=== PATIENT | male | born 1940 | race Caucasian/White ===

== ENCOUNTER 2016-09-15 00:02 | Inpatient (IN) | payer MEDICARE ==
[~2016-09-15] VITALS: Ht 172.7 cm; Wt 61.0 kg
[2016-09-15] VITALS (10 sets, daily range): BP systolic 130–184; BP diastolic 60–98
[~2016-09-15 00:02] MED LIST: ATIVAN0.5 MG PO
[2016-09-15 00:20] LABS: BASO # 0.1 10*3/uL (0.0-0.1); BASO % 0.7 % (0.0-1.0); EOS # 0.5 10*3/uL (0.0-0.4); EOS % 4.8 % (1.0-4.0); HEMATOCRIT 42.3 % (42.0-52.0); HEMOGLOBIN 14.4 g/dl (14.0-18.0); LYMPH # 2.6 10*3/uL (1.3-4.4); LYMPH % 27.3 % (27.0-41.0); MEAN CORPUSCULAR HGB 30.6 pg (27.0-31.0); MEAN PLATELET VOLUME 10.4 fl (9.6-12.3); MONO # 0.7 10*3/uL (0.1-1.0); MONO % 7.5 % (3.0-9.0); NEUT # 5.6 10*3/uL (2.3-7.9); NEUT % 59.5 % (47.0-73.0); PLATELET COUNT AUTOMATED 262 10*3/uL (130-400); RED CELL DISTRI WIDTH 12.4 % (0-14.5); WHITE BLOOD COUNT 9.5 10*3/uL (4.8-10.8)
[2016-09-15 00:30] LABS: INTERNATIONAL NORM RATIO 1.3 (2.0-3.5); PROTHROMBIN TIME 14.1 SECONDS (9.0-12.4)
[2016-09-15 00:36] LABS: ALBUMIN 3.7 gm/dl (3.1-4.5); ALKALINE PHOSPHATASE 68 U/L (45-117); BILIRUBIN, TOTAL 0.4 mg/dl (0.2-1.0); BUN 11 mg/dl (7-24); CARBON DIOXIDE 28 mmol/L (21-32); CHLORIDE 105 mmol/L (98-107); EST GLOM FILT AFRICAN AMERICAN > 60 ml/min; GLUCOSE 234 mg/dL (65-99); MAGNESIUM 2.4 mg/dL (1.5-2.1); POTASSIUM 4.1 mmol/L (3.5-5.1); SGOT/AST 14 IU/L (3-35); SGPT/ALT 19 U/L (12-78); SODIUM 140 mmol/L (136-145); TOTAL PROTEIN 7.7 gm/dL (6.4-8.2)
[2016-09-15 00:37] LABS: TROPONIN I 0.017 ng/ml (<0.045)
[2016-09-15] MEDS ORDERED: JANTOVEN5 MG PO (01:08)
[2016-09-15] MEDS ORDERED: DIGOXIN0.125 MG PO (01:08)
[2016-09-15] MEDS ORDERED: CARVEDILOL3.125 MG PO (01:09)
[2016-09-15] MEDS ORDERED: PRINIVIL10 MG PO (01:09)
[2016-09-15] MEDS ORDERED: LOVASTATIN40 MG PO (01:09)
[2016-09-15] MEDS ORDERED: METFORMIN750 MG PO (01:10)
[2016-09-15] MEDS ORDERED: GLIPIZIDE10 M1 PO (01:11)
[2016-09-15] MEDS ORDERED: MULTI VITAMINS1 TAB PO (04:16)
[2016-09-15 06:22] LABS: BASO # 0.1 10*3/uL (0.0-0.1); BASO % 0.7 % (0.0-1.0); EOS # 0.4 10*3/uL (0.0-0.4); EOS % 4.8 % (1.0-4.0); HEMATOCRIT 38.3 % (42.0-52.0); HEMOGLOBIN 12.7 g/dl (14.0-18.0); LYMPH # 1.9 10*3/uL (1.3-4.4); LYMPH % 25.3 % (27.0-41.0); MEAN CELL VOLUME 90.3 fl (80.0-94.0); MEAN CORPUSCULAR HGB CONC 33.2 g/dl (33.0-37.0); MEAN PLATELET VOLUME 10.5 fl (9.6-12.3); MONO # 0.6 10*3/uL (0.1-1.0); MONO % 7.6 % (3.0-9.0); NEUT # 4.6 10*3/uL (2.3-7.9); NEUT % 61.5 % (47.0-73.0); PLATELET COUNT AUTOMATED 233 10*3/uL (130-400); RED BLOOD COUNT 4.24 10*6/uL (4.50-5.90); RED CELL DISTRI WIDTH 12.4 % (0-14.5); WHITE BLOOD COUNT 7.5 10*3/uL (4.8-10.8)
[2016-09-15 06:33] LABS: HEMOGLOBIN A1c 9.1 % (4.8-5.6)
[2016-09-15 06:56] LABS: BUN 10 mg/dl (7-24); CARBON DIOXIDE 28 mmol/L (21-32); CHLORIDE 106 mmol/L (98-107); CHOLESTEROL 125 mg/dL (<200); EST GLOM FILT AFRICAN AMERICAN > 60 ml/min; GLUCOSE 185 mg/dL (65-99); MAGNESIUM 2.3 mg/dL (1.5-2.1); PHOSPHOROUS 2.8 mg/dL (2.5-4.9); POTASSIUM 4.3 mmol/L (3.5-5.1); SODIUM 140 mmol/L (136-145); TRIGLYCERIDES 193 mg/dl (<150); VLDL CHOLESTEROL 39 mg/dL (6-40)
[2016-09-15 06:57] LABS: INTERNATIONAL NORM RATIO 1.4 (2.0-3.5)
[2016-09-15 07:03] LABS: VITAMIN D, 25-HYDROXY 26.7 ng/mL (30-100)
[2016-09-15 07:04] LABS: FOLIC ACID 17.8 ng/mL (>5.38); FREE T4 0.83 ng/dl (0.76-1.46); HDL CHOLESTEROL 34 mg/dl (40-60); LDL CHOLESTEROL 52 mg/dL (9-159)
[2016-09-15] MEDS ORDERED: VITAMIN D-32000 UNI1 PO (12:02)
[2016-09-15] MEDS ORDERED: MECLIZINE HCL25 M2 PO (12:02)
[2016-09-15] MEDS ORDERED: METFORMIN1000 MG PO (12:02)
[2016-09-15] MEDS ORDERED: LISINOPRIL20 MG PO (12:02)
== END 2016-09-15 11:55 | disposition home or self-care (01) | DRG 305 ==
LOC: ED 00:02 → 5E 02:20 → EDHOLD 02:20 → 5E 02:39
PROVIDERS: Emergency Medicine Emergency Medical Services; Internal Medicine
DX: I16.1 Hypertensive emergency (principal); E11.51 Type 2 diabetes mellitus with diabetic peripheral angiopathy without gangrene; E11.65 Type 2 diabetes mellitus with hyperglycemia; H81.12 Benign paroxysmal vertigo, left ear; E78.00 Pure hypercholesterolemia, unspecified; E83.41 Hypermagnesemia; F17.210 Nicotine dependence, cigarettes, uncomplicated; Z86.73 Personal history of transient ischemic attack (TIA), and cerebral infarction without residual deficits; Z71.6 Tobacco abuse counseling; I25.2 Old myocardial infarction; Z80.0 Family history of malignant neoplasm of digestive organs; Z82.49 Family history of ischemic heart disease and other diseases of the circulatory system

== ENCOUNTER 2017-08-25 19:04 | Inpatient (IN) | payer MEDICARE ==
[~2017-08-25] VITALS: Ht 177.8 cm; Wt 47.7 kg
--- NOTE | ~2017-08-25 | CON ---
[place], [place] REPORT OF CONSULTATION NAME: VIRGILIO TRIPP [facility] #: [id number] UNIT #: [id number] ROOM: 425 DOCTOR: SEKOU HATCHHARISH J BIRTHDATE: [birth year] DOS: 08/26/2017 SUBJECTIVE: The patient is a 76-year-old male with chief complaint of gangrenous changes to the left foot, left leg and infected ulcer to the outside of the left ankle. The patient has seen Dr. House at [facility] for vascular surgery and was at the wound care center with Dr. Mikey DPM recently. The patient was admitted from the emergency room yesterday. PAST MEDICAL HISTORY: Atrial fibrillation, benign positional vertigo, chronic CHF, essential hypertension, history of CVA, history of [place], hypercholesterolemia, hypercoagulable state, mixed hyperlipidemia, PVD, tobacco abuse disorder, type 2 diabetes, vitamin D deficiency. PAST SURGICAL HISTORY: History of vascular procedure. SOCIAL HISTORY: Smoking 5 cigarettes daily and has smoked since age 7. Social alcohol use. Denies illicit drug use. FAMILY HISTORY: Father at age 64 of colon cancer. Mother in the 80s of [place]. ALLERGIES: No known allergies. PHYSICAL EXAMINATION: LOWER EXTREMITY EXAMINATION: Pedal pulses nonpalpable. There is decreased hair growth. There is an ulceration to the lateral malleolus, left ankle with purulent drainage, localized erythema and foul odor consistent with infection. The patient has a gangrene noted to the left forefoot encompassing toes 3, 4 and 5 extending to the mid foot dorsolaterally and plantarly. There are also gangrenous changes to the anterior left wall noted. ASSESSMENT: Gangrene, severe peripheral vascular disease, infection of the left ankle with possible underlying osteomyelitis, diabetes. PLAN: Evaluation and management discussed with the patient and his family that this is a limb loss situation that he needs a vascular intervention or a [id number] amputation. The family was in concurrence with this. My recommendation was to transfer the patient back to Dr. House at [facility]. I spoke with Dr. House via telephone regarding the patient's case and he will arrange transfer of the patient to [facility] with either vascular intervention or amputation. I also discussed the case with internal medicine to notify them of the patient's condition, my recommendations and the patient being transferred under Dr. House's care. Ordered Bactroban and gauze dressing to the lateral left ankle and dry gauze dressing to the remaining areas before the patient was transferred and the patient will be followed by Dr. House at [facility]. [place], [place] REPORT OF CONSULTATION NAME: VIRGILIO TRIPP UNIT #: [id number] ROOM: 425 DOCTOR: HARISH SAPP DPM BIRTHDATE: [birth year] HARISH SAPP DPM CM:CONSTR:REPORT OF CONSULTATION [id number] 08/26/17 1313 interface
[~2017-08-25 19:04] MED LIST changes: +CARVEDILOL3.125 MG PO; +DIGOXIN0.125 MG PO; +GLIPIZIDE10 M1 PO; +JANTOVEN5 MG PO; +LISINOPRIL20 MG PO; +LOVASTATIN40 MG PO; +MECLIZINE HCL25 M2 PO; +METFORMIN1000 MG PO; +METFORMIN750 MG PO; +MULTI VITAMINS1 TAB PO; +PRINIVIL10 MG PO; +VITAMIN D-32000 UNI1 PO
[2017-08-25 20:00] VITALS: BP 115/65
[2017-08-25 20:07] LABS: BASO % 0.2 % (0.0-1.0); EOS % 0.2 % (1.0-4.0); HEMATOCRIT 29.9 % (42.0-52.0); HEMOGLOBIN 9.8 g/dl (14.0-18.0); LYMPH # 0.9 10*3/uL (1.3-4.4); LYMPH % 6.7 % (27.0-41.0); MEAN CELL VOLUME 87.7 fl (80.0-94.0); MEAN CORPUSCULAR HGB 28.7 pg (27.0-31.0); MEAN CORPUSCULAR HGB CONC 32.8 g/dl (33.0-37.0); MONO # 0.8 10*3/uL (0.1-1.0); MONO % 5.8 % (3.0-9.0); NEUT # 11.9 10*3/uL (2.3-7.9); NEUT % 86.7 % (47.0-73.0); PLATELET COUNT AUTOMATED 288 10*3/uL (130-400); RED BLOOD COUNT 3.41 10*6/uL (4.50-5.90); WHITE BLOOD COUNT 13.7 10*3/uL (4.8-10.8)
[2017-08-25 20:24] LABS: INTERNATIONAL NORM RATIO 5.8 (2.0-3.5)
[2017-08-25 20:27] LABS: ALBUMIN 2.5 gm/dl (3.1-4.5); ALKALINE PHOSPHATASE 145 U/L (45-117); BUN 26 mg/dl (7-24); CHLORIDE 96 mmol/L (98-107); CREATININE 0.92 mg/dL (0.70-1.30); POTASSIUM 4.5 mmol/L (3.5-5.1); SGOT/AST 378 IU/L (3-35); SGPT/ALT 294 U/L (12-78); SODIUM 129 mmol/L (136-145); TOTAL PROTEIN 7.3 gm/dL (6.4-8.2)
[2017-08-25 20:28] LABS: TROPONIN I < 0.015 ng/ml (<0.045)
[2017-08-25 20:45] LABS: BILIRUBIN NEGATIVE (NEGATIVE); BLOOD NEGATIVE (NEGATIVE); CLARITY SL CLOUDY (CLEAR); COLOR YELLOW (YELLOW); GLUCOSE NEGATIVE (NEGATIVE); KETONE NEGATIVE (NEGATIVE); LEUKO ESTERASE 1+ (NEGATIVE); NITRITE NEGATIVE (NEGATIVE); PH 5.5 (5.0-9.0); SPECIFIC GRAVITY 1.015 (1.005-1.030)
[2017-08-25 20:59] LABS: BACTERIA 1+; CALCIUM OXALATE CRYSTALS 1+; MUCOUS 1+
[2017-08-25 21:00] VITALS: BP 116/57
[2017-08-25 22:00] VITALS: BP 120/57
[2017-08-25 23:18] VITALS: BP 104/49
[2017-08-25 23:30] VITALS: BP 107/53
[2017-08-26] VITALS (10 sets, daily range): BP systolic 104–156; BP diastolic 48–74
[2017-08-26] MEDS ORDERED: NORVASC5 MG PO (04:23)
[2017-08-26] MEDS ORDERED: TYLENOL EXTRA500 M2 PO (04:24)
[2017-08-26] MEDS ORDERED: TRAMADOL HCL50 MG PO (04:26)
[2017-08-26] MEDS ORDERED: PLAVIX75 M1 PO (04:27)
[2017-08-26] MEDS ORDERED: ASPIRIN ADULT L81 M1 PO (04:29)
[2017-08-26] MEDS ORDERED: PRILOSEC20 M1 PO (04:32)
[2017-08-26] MEDS ORDERED: GLUCOPHAGE500 M1 PO (04:34)
[2017-08-26] MEDS ORDERED: SIMVASTATIN40 MG PO (04:35)
[2017-08-26] MEDS ORDERED: COUMADIN2 M1 PO (04:36)
[2017-08-26 06:10] LABS: BASO % 0.2 % (0.0-1.0); EOS % 0.3 % (1.0-4.0); HEMATOCRIT 30.3 % (42.0-52.0); HEMOGLOBIN 9.7 g/dl (14.0-18.0); LYMPH # 1.1 10*3/uL (1.3-4.4); LYMPH % 8.4 % (27.0-41.0); MEAN CELL VOLUME 87.8 fl (80.0-94.0); MEAN CORPUSCULAR HGB 28.1 pg (27.0-31.0); MEAN PLATELET VOLUME 10.2 fl (9.6-12.3); MONO # 0.8 10*3/uL (0.1-1.0); MONO % 6.2 % (3.0-9.0); NEUT # 10.9 10*3/uL (2.3-7.9); NEUT % 84.4 % (47.0-73.0); PLATELET COUNT AUTOMATED 286 10*3/uL (130-400); RED BLOOD COUNT 3.45 10*6/uL (4.50-5.90); WHITE BLOOD COUNT 12.9 10*3/uL (4.8-10.8)
[2017-08-26 06:35] LABS: ALBUMIN 2.2 gm/dl (3.1-4.5); ALKALINE PHOSPHATASE 150 U/L (45-117); BUN 21 mg/dl (7-24); CHLORIDE 95 mmol/L (98-107); CHOLESTEROL 68 mg/dL (<200); CREATININE 0.75 mg/dL (0.70-1.30); HDL CHOLESTEROL 19 mg/dl (40-60); LDL CHOLESTEROL 32 mg/dL (9-159); PHOSPHOROUS 3.9 mg/dL (2.5-4.9); POTASSIUM 4.4 mmol/L (3.5-5.1); SGOT/AST 373 IU/L (3-35); SGPT/ALT 335 U/L (12-78); SODIUM 129 mmol/L (136-145); TOTAL PROTEIN 7.4 gm/dL (6.4-8.2); TRIGLYCERIDES 87 mg/dl (<150); VLDL CHOLESTEROL 17 mg/dL (6-40)
[2017-08-26 06:41] LABS: THYROID STIM HORMONE (HS) 0.882 uIU/ml (0.358-4.75)
[2017-08-26 06:44] LABS: INTERNATIONAL NORM RATIO 6.9 (2.0-3.5)
[2017-08-26 07:43] LABS: VITAMIN D, 25-HYDROXY 32.1 ng/mL (30-100)
[2017-08-27 10:04] LABS: HEPATITIS B SURFACE AG Negative (Negative); HEPATITIS C VIRUS ANTIBODY 0.1 s/co (0.0-0.9)
== END 2017-08-26 13:56 | disposition short-term general hospital (02) | DRG 698 ==
LOC: ED 19:04 → EDHOLD 08-26 03:26 → 4E 08-26 03:32
PROVIDERS: Emergency Medicine; Internal Medicine Hospice and Palliative Medicine
DX: T83.511A Infection and inflammatory reaction due to indwelling urethral catheter, initial encounter (principal); E43 Unspecified severe protein-calorie malnutrition; G93.41 Metabolic encephalopathy; L89.524 Pressure ulcer of left ankle, stage 4; I96 Gangrene, not elsewhere classified; E11.52 Type 2 diabetes mellitus with diabetic peripheral angiopathy with gangrene; D68.59 Other primary thrombophilia; E87.1 Hypo-osmolality and hyponatremia; I50.32 Chronic diastolic (congestive) heart failure; Z68.1 Body mass index [BMI] 19.9 or less, adult; M86.8X7 Other osteomyelitis, ankle and foot; E11.649 Type 2 diabetes mellitus with hypoglycemia without coma; N39.0 Urinary tract infection, site not specified; E11.69 Type 2 diabetes mellitus with other specified complication; I11.0 Hypertensive heart disease with heart failure; L89.620 Pressure ulcer of left heel, unstageable; E87.8 Other disorders of electrolyte and fluid balance, not elsewhere classified; L89.612 Pressure ulcer of right heel, stage 2; L89.890 Pressure ulcer of other site, unstageable; I48.0 Paroxysmal atrial fibrillation; L89.892 Pressure ulcer of other site, stage 2; D64.9 Anemia, unspecified; F17.210 Nicotine dependence, cigarettes, uncomplicated; R74.0 Nonspecific elevation of levels of transaminase and lactic acid dehydrogenase [LDH]; D72.810 Lymphocytopenia; L89.512 Pressure ulcer of right ankle, stage 2; E78.00 Pure hypercholesterolemia, unspecified; E55.9 Vitamin D deficiency, unspecified; E78.2 Mixed hyperlipidemia; Y84.6 Urinary catheterization as the cause of abnormal reaction of the patient, or of later complication, without mention of misadventure at the time of the procedure; Y92.89 Other specified places as the place of occurrence of the external cause; I25.2 Old myocardial infarction; Z86.73 Personal history of transient ischemic attack (TIA), and cerebral infarction without residual deficits; Z82.49 Family history of ischemic heart disease and other diseases of the circulatory system; Z80.0 Family history of malignant neoplasm of digestive organs; Z79.899 Other long term (current) drug therapy; Z79.01 Long term (current) use of anticoagulants; Z79.02 Long term (current) use of antithrombotics/antiplatelets; Z79.82 Long term (current) use of aspirin; Z79.84 Long term (current) use of oral hypoglycemic drugs